=== PATIENT | male | born 1965 | race Caucasian/White ===

== ENCOUNTER → 2020-07-31 16:56 | Outpatient (CLI) | payer BC, SELFPAY ==
--- NOTE | ~2020-07-31 | XR_ITS ---
XR lumbar spine min 4V DATE: 07/31/2020 17:13 INDICATION: Low back pain TECHNIQUE: AP, lateral, coned lateral lumbosacral and bilateral oblique views COMPARISON: 06/02/2007 MRI lumbar spine 05/15/2007 lumbar spine FINDINGS: Osteopenia. There is minimal anterolisthesis at L3-4. The lumbar vertebra otherwise are normally aligned. There is moderately prominent loss of interspace at L2-3. There is mild loss of height at L5-S1. No fracture or bone destruction; the pedicles are intact. No spondylolysis. The sacroiliac joints appear normal. IMPRESSION: Diffuse osteopenia Moderate loss of interspace height at L2-3 and mild loss of interspace at L5-S1 Minimal anterolisthesis at L3-4 Reviewed, dictated and finalized at location B.
== END ==
PROVIDERS: PCP Family Medicine; Visit Provider Family Medicine
DX: M85.88 Other specified disorders of bone density and structure, other site (principal)
CPT/HCPCS: 72110

== ENCOUNTER 2020-09-12 15:09 | Outpatient (CLI) | payer BC, SELFPAY ==
--- NOTE | ~2020-09-12 | DEXA_ITS ---
Bone Density Report Name: Yasmani Medina Age: 55 Sex: Male Ethnicity: White Date of : 1965 Indication: history of glucocorticoids; prior fracture; Referring Provider: JENNIFER HORN Study: Bone densitometry was performed. Exam Date: September 12, 2020 Accession number: [id number] Bone Density: Region BMD T-score Z-score Classification AP Spine (L1-L4) 0.987 -0.9 -0.4 Normal Femoral Neck (Left) 0.767 -1.2 -0.3 Osteopenia Total Hip (Left) 0.961 -0.5 -0.1 Normal Total Hip Bilateral Avg 0.979 -0.4 0.1 Normal Femoral Neck (Right) 0.867 -0.5 0.4 Normal Total Hip (Right) 0.996 -0.2 0.2 Normal World Health Organization criteria for BMD impression classify patients as: Normal (T-score at or above -1.0), Osteopenia (T-score between -1.0 and -2.5), or Osteoporosis (T-score at or below -2.5). 10-year Fracture Risk: FRAX not reported because: Prior hip or vertebral fracture Clinical Information Provided by Patient: Have had a previous hip or vertebral fracture Has had a low trauma fracture Has taken Glucocorticoids Patient maximum height was 70 Drinks caffeinated beverages Impression: The patient has low bone mass, based on the Left Femoral Neck T-score. The patient has risk factors, including: previous fracture, history of glucocorticoid therapy. Discussion: INCREASED RISK OF FRACTURE DUE TO HISTORY OF LOW TRAUMA FRACTURE. The patient's previous fracture puts the patient at high risk of a future fracture. In untreated patients, the risk of osteoporotic fracture increases approximately two-fold for each 1.0 SD decrease in T-score. Low bone density is not the only risk factor for fracture; also consider factors such as patient's age, frailty or poor health, risk of falling, risk of injury, previous osteoporotic fracture, family history of osteoporosis, cigarette smoking, low body weight, etc. Not everyone with a low trauma fracture has osteoporosis; osteomalacia and other metabolic bone disorders should also be considered. Patients who have osteoporosis should be evaluated for specific diseases and conditions (secondary causes) that may cause or contribute to bone loss and fracture risk. National Osteoporosis Foundation (NOF) recommends pharmacologic intervention for patients with a prior low trauma hip or vertebral fracture regardless of BMD T-score. The patient should follow a healthful lifestyle (good nutrition with adequate calcium and vitamin D, and appropriate weight-bearing exercise). Follow-Up: Consider a repeat BMD and Vertebral Fracture Assessment (VFA) exam in 2 years or sooner if medically necessary, to reassess this patient's status. Reported by: DO on 09/12/2020 3:42:00 PM. Reviewed, dictated and finalized at location ALeydi AGRAWAL
== END 2020-09-12 15:10 | disposition home or self-care (01) ==
LOC: ANHIMG 15:12
PROVIDERS: PCP Family Medicine; Visit Provider Family Medicine
DX: M85.852 Other specified disorders of bone density and structure, left thigh (principal)
CPT/HCPCS: 77080

== ENCOUNTER 2021-01-04 13:46 | Emergency (ER) | payer BC, SELFPAY ==
--- NOTE | ~2021-01-04 | XR_ITS ---
EXAMINATION: XR ankle RT min 3V DATE: 01/04/2021 14:20 INDICATION: Right ankle pain post fall TECHNIQUE: Anteroposterior, oblique, mortise, and lateral views of the right ankle were obtained. COMPARISON: None. FINDINGS: Nondisplaced transverse fracture across the tip of the lateral malleolus. No other fractures identifi ed. Specifically the medial and posterior malleoli as well as the talar dome remain intact. Alignment remains essentially anatomic with congruent ankle mortise. Small heterotopic ossicle near the tip of the medial malleolus likely sequela of chronic medial ankle sprain. Soft tissue swelling about the l ateral malleolus. Tiny heterotopic ossicle versus loose osteochondral body at the anterior margin of the tibial plafond. IMPRESSION: 1. Nondisplaced transverse fracture across the tip of the lateral malleolus. Reviewed, dictated and finalized at location A.
--- NOTE | ~2021-01-04 | CT_ITS ---
EXAMINATION: CT thoracic lumbar wo con DATE: 01/04/2021 14:37 INDICATION: 10 to 12 ft. fall. Neck and back pain. TECHNIQUE: Computed tomography (CT) of the thoracic and lumbar spine was performed without intravenou s contrast. Automated exposure control and iterative reconstruction technique were employed. Exam dos e: 2206.11 mGy-cm total exam DLP. COMPARISON: None FINDINGS: There is mild degenerative spurring of the thoracic and lumbar spine. Normal alignment of the thoracic and lumbar vertebrae. The lumbar and lumbosacral interspaces are wel l preserved. No spondylolysis or spondylolisthesis. No fracture or dislocation or bone destruction of the thoracic or lumbar spine is evident.. Radiopaque seeds are noted in the prostate gland. IMPRESSION: Mild degenerative spurring of the thoracic and lumbar spine. No fracture, dislocation, s pondylolisthesis or bone destruction Reviewed, dictated and finalized at Location A. Reviewed, dictated and finalized at location A. IMPRESSION: Mild degenerative spurring of the thoracic and lumbar spine. No fr acture, dislocation, spondylolisthesis or bone destruction
--- NOTE | ~2021-01-04 | CT_ITS ---
EXAMINATION: CT cervical spine wo con DATE: 01/04/2021 14:36 INDICATION: 10 to 12 ft. fall. Neck pain, back pain. TECHNIQUE: Computed tomography (CT) of the cervical spine was performed without intravenous contrast. Automated exposure control and iterative reconstruction technique were employed. Exam dose: 451.92 mGy-cm total exam DLP. COMPARISON: None FINDINGS: There is prominent degenerative disc disease at C5-6, moderate degenerative disc disease at C6-7. There is degenerative change at the apophyseal joints. There is prominent uncovertebral joint spurring at C5-6. C1 and C2 are normally aligned and the odontoid process is intact. No fracture or dislocation or lock ed facet or prevertebral soft tissue swelling is detected. IMPRESSION: Cervical spondylosis; no evidence of cervical spine fracture or dislocation Reviewed, dictated and finalized at Location A. Reviewed, dictated and finalized at location A. IMPRESSION: Cervical spondylosis; no evidence of cervical spine fracture or di slocation
[2021-01-04 13:48] VITALS: BP 156/80; PULSE 82; RESP 18; TEMP 35.8; O2SAT 99
--- NOTE | 2021-01-04 14:06 | ED.FALL ---
HPI - Fall General Chief Complaint: Fall Stated Complaint: fall from ladder 10-12 ft height Time Seen by Provider: 01/04/21 13:57 Source: patient Mode of arrival: ambulatory Limitations: no limitations History of Present Illness HPI Narrative: Patient is a 55-year-old male complaining of right ankle, mid and lower back pain after he fell off a 10 foot ladder yesterday. Patient states his pain is currently mild, dull, nonradiating. Patient denies any head chest abdomen or any other extremity pain/injury. Patient states that she was able to get up and ambulate after the fall. Related Data Home Medications Medication Instructions Recorded Confirmed tadalafil 5 mg tablet 5 mg PO .every other day tablet 10/05/19 Allergies Allergy/AdvReac Type Severity Reaction Status Date / Time No Known Allergies Allergy Verified 01/04/21 13:56 Review of Systems Review of Systems: All systems reviewed & are unremarkable except as noted in HPI and below Constitutional: Constitutional: Denies body ache(s), Denies chills, Denies excessive sweating, Denies fatigue, Denies fever(s), Denies headache(s), Denies lethargy, Denies malaise, Denies weakness and Denies weight loss Eyes: Eyes: Denies blurry vision, Denies change in vision and Denies loss of vision ENT: Denies dizziness, Denies ear discharge, Denies headache(s), Denies lip swelling, Denies epistaxis, Denies nasal congestion, Denies neck pain, Denies throat swelling and Denies tongue swelling Cardiovascular: Cardiovascular: Denies chest pain, Denies chest pain at rest, Denies chest pain with activity, Denies diaphoresis, Denies rapid heart rate, Denies edema, Denies irregular heart rhythm, Denies lightheadedness, Denies palpitations, Denies dyspnea and Denies dyspnea on exertion Respiratory: Respiratory: Denies chest congestion, Denies cough, Denies hemoptysis, Denies dyspnea and Denies dyspnea on exertion Gastrointestinal: Gastrointestinal: Denies abdominal pain, Denies melena, Denies hematochezia, Denies diarrhea, Denies nausea, Denies vomiting and Denies hematemesis Musculoskeletal: Musculoskeletal: Denies abnormal gait, Denies deformity, Denies joint swelling, Denies limited range of motion, Denies neck pain and Denies numbness Neurologic: Denies Abnormal speech present, Denies abnormal gait, Denies confusion, Denies dizziness, Denies headache(s), Denies focal weakness, Denies loss of vision, Denies numbness, Denies Other visual disturbances, Denies Sensory deficit (Neuro) and Denies weakness Psychiatric: Psychiatric: Denies confusion, Denies depression, Denies auditory hallucinations, Denies homicidal ideation and Denies suicidal ideation Endocrine: Endocrine: Denies cold intolerance, Denies excessive sweating, Denies fatigue, Denies heat intolerance and Denies palpitations Hematologic/Lymphatic: Hematologic/Lymphatic: Denies easy bleeding and Denies easy bruising Allergic/Immunologic: Allergic/Immunologic: Denies lip swelling, Denies throat swelling and Denies tongue swelling PMFSH Family History Family History Father Family history of heart disease in male family member before age 55 Family history of bipolar disorder, Onset Age: 50 Family history of alcoholism, Onset Age: 50 Cerebrovascular accident, Onset Age: 50 Patient's father is , Onset Age: 50 Social History Social History Smoking status: Never smoker Second hand tobacco smoke exposure: No Alcohol intake: current Exam Const: General: cooperative, healthy appearing, comfortable, no acute distress, well developed, alert and awake; No confusion Orientation/consciousness: oriented to person, oriented to place, oriented to time, patient oriented x3 and No confusion Limitations: no limitations HENMT: Head: normal to inspection, normocephalic and atraumatic Ears: hearing grossl
[2021-01-04 16:00] VITALS: BP 155/70; PULSE 80; RESP 17; O2SAT 100
[2021-01-04] MEDS: TETANUS,DIPHTHERIA,AC PERTUSSIS ADULT (0.5 ML) BOOSTRIX IM (17:34)
== END 2021-01-04 17:36 | disposition home or self-care (01) ==
PROVIDERS: Emergency Provider Emergency Medicine; PCP Family Medicine
DX: S82.64XA Nondisplaced fracture of lateral malleolus of right fibula, initial encounter for closed fracture (principal); S16.1XXA Strain of muscle, fascia and tendon at neck level, initial encounter; S29.019A Strain of muscle and tendon of unspecified wall of thorax, initial encounter; S39.012A Strain of muscle, fascia and tendon of lower back, initial encounter; Z23 Encounter for immunization; W11.XXXA Fall on and from ladder, initial encounter
CPT/HCPCS: 29515; 72125; 72128; 72131; 73610; 90471; 90715; 99284

== ENCOUNTER → 2022-04-23 14:26 | Outpatient (CLI) | payer BC, SELFPAY ==
--- NOTE | ~2022-04-23 | XR_ITS ---
EXAMINATION: XR abdomen obstructive series DATE: 04/23/2022 15:11 INDICATION: Right lower abdominal pain TECHNIQUE: Upright and supine views of the abdomen were obtained. COMPARISON: None. FINDINGS: There is no free intraperitoneal gas or evidence of bowel obstruction. The visualized lung bases are clear. Surgical clips project in the area of the prostate. There is mild osteoarthritis of the hips. IMPRESSION: 1. Nonobstructive bowel gas pattern. Reviewed, dictated and finalized at location A. [employer]
== END ==
PROVIDERS: PCP Family Medicine; Visit Provider Family Medicine
DX: R10.9 Unspecified abdominal pain (principal)
CPT/HCPCS: 74019

== ENCOUNTER 2022-10-28 10:02 | Emergency (ER) | payer OTHER, SELFPAY ==
[2022-10-28 10:11] VITALS: BP 140/67; PULSE 76; RESP 18; TEMP 36.8; O2SAT 98
--- NOTE | 2022-10-28 10:25 | ED.ABDPAIN ---
HPI - Abdominal Pain General Chief Complaint: Abdominal Pain Stated Complaint: Abdominal Pain Time Seen by Provider: 10/28/22 10:16 Source: patient and RN notes reviewed Mode of arrival: ambulatory Limitations: no limitations History of Present Illness HPI narrative: Patient presents today complaining of pain to the umbilicus. Over the past year he states his umbilicus has gone from an innie to an outie , but noted bulging to the area this morning in the shower. He lifts weights everyday for the past 20 years and works out for up to 5 hours per day. Also reports some mild nausea since last night. Rates his pain 1/10 at rest, but increases to 5/10 with palpation. Related Data Allergies Allergy/AdvReac Type Severity Reaction Status Date / Time No Known Allergies Allergy Verified 10/28/22 10:16 Review of Systems Review of Systems: CONSTITUTIONAL: Denies body aches, fever, chills, or sweats. EYES: Denies visual changes, redness, or discharge. ENT: Denies rhinorrhea, congestion, sore throat, or otalgia. CARDIOVASCULAR: Denies chest pain, palpitations, or edema. RESPIRATORY: Denies cough or dyspnea. GASTROINTESTINAL: Denies vomiting, or diarrhea.+ abdominal pain, nausea GENITOURINARY: Denies dysuria or hematuria. SKIN: Denies rash, itching, or wounds. MUSCULOSKELETAL: Denies back pain, joint pain, or myalgia. NEUROLOGIC: Denies headache, numbness, tingling, or weakness. PSYCH: Denies depression or anxiety. [facility] Past Medical History Medical History Anemia Contracture of left Achilles tendon GERD (gastroesophageal reflux disease) History of urinary frequency History of weight gain Lateral knee pain Left shoulder pain Metatarsalgia of left foot Pes cavus of right foot Rotator cuff tendonitis Surgical History Surgical History History of prostate surgery Urolift surgery, 2019, Dr. Brewster Family History Family History Father Family history of heart disease in male family member before age 55 Family history of bipolar disorder, Onset Age: 50 Family history of alcoholism, Onset Age: 50 Cerebrovascular accident, Onset Age: 50 Patient's father is , Onset Age: 50 Other Hypertension Social History Social History Smoking status: Never smoker Second hand tobacco smoke exposure: No Alcohol intake: current Alcohol use details: 4-6 drinks per week Substance use: never Lack of Transportation: No Lack of Food: Never True Current Housing: I Have Housing Concerned About Future Housing: No Difficulty Paying Gas/Electric Bills: No Difficulty Paying for Meds: No Currently Unemployed: No Education: Master's Degree or Higher Difficulty w/ Childcare or Family Care: No Living arrangements: with family Occupation/Education: occupation 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 Please see nursing chart for further information. There is no relevant family history pertinent to the presenting complaint Exam Narrative: GENERAL: Well-appearing, well-nourished, and in no acute distress. HEAD: Normocephalic, atraumatic. EYES: EOMI. No redness or drainage. Conjunctivae normal. ENT: Mucous membranes pink and moist. NECK: Normal AROM. CHEST: No respiratory distress. Clear to auscultation. HEART: Regular rate and rhythm. No murmur appreciated. Normal peripheral pulses. ABDOMEN:nondistended, normal active bowel sounds. MUSCULOSKEL
--- NOTE | 2022-10-28 10:28 | PC.NURSE ---
PER SENIOR TRIAL ATTORNEY, PT ABD IS TENDER WHEN SHE ATTEMPTED TO REDUCE HERNIA.
--- NOTE | 2022-10-28 10:34 | PC.NURSE ---
PER HOOP COILER, SHE WAS UNABLE TO REDUCE HERNIA, PT WENT FROM 1/10 TO 5/10 ON PAIN SCALE WITH ATTEMPT. PT TO BE TRANSFERRED TO [facility].
== END 2022-10-28 10:30 | disposition short-term general hospital (02) ==
PROVIDERS: Emergency Provider Nurse Practitioner; PCP Family Medicine
DX: K42.0 Umbilical hernia with obstruction, without gangrene (principal); K21.9 Gastro-esophageal reflux disease without esophagitis
CPT/HCPCS: 99212; G0463

== ENCOUNTER 2022-10-28 10:55 | Emergency (ER) | payer OTHER, SELFPAY ==
[2022-10-28 11:10] VITALS: BP 124/78; PULSE 66; RESP 18; TEMP 36.5; O2SAT 98
[2022-10-28 12:06] LABS: Basophils Percent Auto 0.7 % (0.2-1.2); Eosinophils Absolute Auto 0.1 K/mm3 (0-0.3); Eosinophils Percent Auto 2.6 % (0-4.4); Hematocrit 41.2 % (42.0-52.0); Hemoglobin 13.4 g/dL (14.0-18.0); Immature Granulocyte Absolute 0.01 K/mm3 (0.00-0.031); Immature Granulocyte Percent A 0.2 % (0-0.5); Lymphocytes Absolute Auto 1.56 K/mm3 (0.9-3.2); Lymphocytes Percent Auto 29.1 % (18.3-44.2); Mean Corpuscular HGB Conc 32.5 g/dl (32-36); Mean Corpuscular Hemoglobin 29.2 pg (26-34); Mean Corpuscular Volume 89.8 fl (80-100); Mean Platelet Volume 9.2 fl (7.4-10.4); Monocytes Absolute Auto 0.5 K/mm3 (0.1-0.6); Monocytes Percent Auto 8.8 % (2.6-8.5); Neutrophils Absolute Auto 3.2 K/mm3 (1.3-6.7); Neutrophils Percent Auto 58.6 % (45.5-73.1); Platelet Count Result 329 k/mm3 (150-375); Red Blood Count 4.59 M/mm3 (4.6-6.20); Red Cell Distribution Width 12.6 % (11.5-14.5); White Blood Count 5.4 K/mm3 (4.5-10.0)
[2022-10-28 12:16] LABS: Alanine Aminotransferase 25 U/L (6-50); Albumin Level 4.6 g/dL (3.5-5.1); Alkaline Phosphatase 82 U/L (38-126); Anion Gap 8 mmol/L (8-16); Aspartate Amino Transferase 27 U/L (17-59); Bilirubin,Total 0.4 mg/dL (0.2-1.3); Blood Urea Nitrogen 13 mg/dL (9-20); Calcium 9.3 mg/dL (8.4-10.2); Carbon Dioxide 28 mmol/L (22-30); Chloride 103 mmol/L (98-107); Estimated CRCL calculation 88 ml/min; Estimated Glomerular Filt Rate > 60; Glucose 101 mg/dL (65-110); Lipase 53 U/L (23-300); Potassium 4.2 mmol/L (3.4-5.0); Sodium 139 mmol/L (137-145)
[2022-10-28 13:14] LABS: Appearance Urine Clear (Clear); Bilirubin Urine Negative (Negative); Blood Urine Negative (Negative); Color Urine Yellow (Yellow); Glucose Urine UA Negative (Negative); Ketones Urine Negative (Negative); Leukocyte Esterase Ur Negative LEU/UL (Negative); Nitrate Urine Negative (Negative); Protein Urine Negative (Negative); Specific Grav Ur 1.008 (1.001-1.035); Urobilinogen Urine 0.2 mg/dL (<2.0); pH Urine 7.5 (5.0-9.0)
[2022-10-28 13:23] VITALS: BP 140/100; PULSE 69; RESP 18; O2SAT 100
[2022-10-28 13:24] LABS: Add Urine Microscopic? NO
--- NOTE | 2022-10-28 14:00 | ED.GENADULT ---
HPI - General Adult General Chief complaint: Abdominal Pain Stated complaint: lump around belly button Time Seen by Provider: 10/28/22 13:13 History of Present Illness HPI narrative: Patient is a 57-year-old male who presents ER with pain and swelling around his umbilicus. Reports he has been noticing it intermittently over the last few weeks. Causes pain. Reports this morning the mass was the size of a orange but is since decreased in size. It is tender to touch. Does not remember any injury to the abdomen. Unsure when the last time was she passed gas. No vomiting or belching or distention. Related Data Allergies Allergy/AdvReac Type Severity Reaction Status Date / Time No Known Allergies Allergy Verified 10/28/22 10:16 Review of Systems Review of Systems: All systems reviewed & are unremarkable except as noted in HPI and below Constitutional: Constitutional: Denies chills and Denies fever(s) Gastrointestinal: Gastrointestinal: Reports abdominal pain, Denies bloating, Denies diarrhea, Denies nausea and Denies vomiting Genitourinary: Genitourinary: Denies dysuria and Denies urinary frequency [facility] Past Medical History Medical History Anemia Contracture of left Achilles tendon GERD (gastroesophageal reflux disease) History of urinary frequency History of weight gain Lateral knee pain Left shoulder pain Metatarsalgia of left foot Pes cavus of right foot Rotator cuff tendonitis Surgical History Surgical History History of prostate surgery Urolift surgery, 2019, Dr. Brewster Family History Family History Father Family history of heart disease in male family member before age 55 Family history of bipolar disorder, Onset Age: 50 Family history of alcoholism, Onset Age: 50 Cerebrovascular accident, Onset Age: 50 Patient's father is , Onset Age: 50 Other Hypertension Social History Social History Smoking status: Never smoker Second hand tobacco smoke exposure: No Alcohol intake: current Alcohol use details: 4-6 drinks per week Substance use: never Lack of Transportation: No Lack of Food: Never True Current Housing: I Have Housing Concerned About Future Housing: No Difficulty Paying Gas/Electric Bills: No Difficulty Paying for Meds: No Currently Unemployed: No Education: Master's Degree or Higher Difficulty w/ Childcare or Family Care: No Living arrangements: with family Occupation/Education: occupation 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 HEAD: Normocephalic, atraumatic. CHEST: Clear to auscultation. No respiratory distress. HEART: Regular rate and rhythm. Normal peripheral pulses. ABDOMEN: Soft, nontender, nondistended, normal active bowel sounds. Umbilical hernia with protruding bowel that is tender to touch. Bowel is able to be reduced with mild to moderate pressure and a defect can be felt in the abdominal wall. EXTREMITIES: Normal range of motion. No edema. SKIN: Warm, dry, no rash. NEURO: Alert and oriented x3. PSYCH: Normal mood and affect. Course Course Emergency Course: Patient resting comfortably. Educated patient on umbilical hernia and incarceration of bowel. Patient had his bowel reduced back through his hernia and pain is improved. His symptoms do not sound as though he is obstructed but that he had just been very symptomatic. We will give referral to general surgery. Vital Signs Vital signs: Vital Signs Temperature 97.7 F 06/2
[2022-10-28 14:05] VITALS: BP 111/81; PULSE 66; RESP 18; O2SAT 97
== END 2022-10-28 14:15 | disposition home or self-care (01) ==
PROVIDERS: Emergency Provider Emergency Medicine; PCP Family Medicine
DX: K42.9 Umbilical hernia without obstruction or gangrene (principal); D64.9 Anemia, unspecified; K21.9 Gastro-esophageal reflux disease without esophagitis
CPT/HCPCS: 36415; 80053; 81003; 83690; 85025; 99283

== ENCOUNTER 2022-11-29 01:36 | Day surgery (SDC) | payer OTHER, SELFPAY ==
[2022-11-17 13:23] VITALS: BMI 34.7
--- NOTE | 2022-11-17 13:30 | PC.NURSE ---
Report to the Outpatient Waiting Room, entrance under the green pavilion located off [facility], at time 1000_ on date _11/29/22_. Planned Procedure Time: _1200_. Time changes happen often and if your time is changed the preop area will call you the afternoon before. - You and your visitor will be asked to self-screen and do not enter if you have any COVID symptoms. - A mask is optional within the hospital at this time. Patients may have clear liquids (water, carbonated beverages, clear teas, apple juice) until 3 hours prior to surgery with a maximum of 20 ounces. - No food from midnight until time of surgery - Infants may have breast milk until 4 hours before surgery, formula 6 hours prior to surgery. - Children will be allowed to drink immediately following surgery. If applicable, please bring a bottle or sippy cup to assist with drinking. Juice, water, soda, and popsicles are readily available. For infants on formula, please bring formula the day of surgery. Pacifiers are allowed. Take the following medications with a SIP of water the morning of surgery: NONE, INHALERS IF NEEDED DO NOT STOP ANY OF YOUR OTHER PRESCRIPTION MEDICATIONS PRIOR TO SURGERY ?EXCEPT THE FOLLOWING Medications to discontinue per physician NONE___ Date to take last dose Please no make-up, nail citizen of [place], hairspray, perfume, deodorant, or body powder the day of surgery. No jewelry (including any body piercings) or valuables the day of surgery, leave them at home. Please take a shower or bath the night before, or the morning of, surgery with HIBICLENS antibacterial soap. Wear comfortable, loose fitting clothing. Children are encouraged to wear pajamas. - Jewelry must be removed prior to entering the operating room. Rings and piercings that are not removed may be cut off. - The hospital will not accept responsibility for valuables. - Please leave all valuables, including medications, at home the day of surgery. If you are going home after surgery, a licensed armor reconnaissance vehicle driver must drive you home. - NO public transportation without another adult if you receive anesthesia. - We recommend that an adult stay with you for 24 hours following discharge. - We also recommend that you do not drive, make important decision, drink alcoholic beverages, or take any drugs that were not prescribed by your health care provider for at least 24 hours after your discharge time. For Pediatric surgeries, we recommend two adults accompany the child home. Follow any additional instructions given to you from your surgeon. If you or anyone in your household have experienced Covid symptoms in the past week, please notify your surgeon or the nurse liaison at the phone number below for possible testing. Telephone instructions given to ___PATIENT_and asked if any additional questions and then verbalized understanding. Patient advised to call surgeon office or pre surgery nurse liaison [phone] if any additional questions.
--- NOTE | 2022-11-26 18:46 | WPDANESEPP ---
Anes - Eval Pre Procedure Procedure: Operation Date: 11/29/22 12:00 Proposed Procedures p Open Umbilical Hernia Repair - Luis Person MD Date/Time: 11/26/22 18:46 Pre Op Diagnosis: reducible umbilical hernia Patient Data Age: 57 Gender: M Height: 1.78 m Weight: 110 kg Allergies Allergy/AdvReac Type Severity Reaction Status Date / Time No Known Allergies Allergy Verified 11/17/22 13:21 Home Medications Medication Instructions Recorded Confirmed Type sildenafil 100 mg tablet (Viagra) 100 mg PO DAILY PRN sexual 10/16/21 11/17/22 Rx activity #10 tabs famotidine 20 mg tablet (Pepcid) 40 mg PO DAILY #90 tabs 01/20/22 11/17/22 Rx azelastine 205.5 mcg (0.15 %) 1 spray intranasal BID #30 mL 08/05/22 11/17/22 Rx nasal spray trazodone 100 mg tablet 100 mg PO QHS PRN insomnia #90 tabs 09/13/22 11/17/22 Rx albuterol sulfate 90 mcg/actuation See Rx Instructions .Route 10/22/22 11/17/22 Rx aerosol inhaler .COMPLEX #18 grams fluticasone 100 mcg-salmeterol 50 1 inh inhalation Q12H PRN 11/17/22 11/17/22 History mcg/dose blistr powdr for Shortness Of Breath Or Wheezing inhalation (Wixela Inhub) Patient hx anesthesia problems: none Family hx anesthesia problems: none Results Review: All pre-operative results and documents have been reviewed as part of the pre-operative evaluation. [facility] Past Medical History Medical History (Updated 11/26/22 @ 18:47 by Kylie Lemos CRNA) Anemia Asthma Contracture of left Achilles tendon GERD (gastroesophageal reflux disease) History of urinary frequency History of weight gain Hyperlipidemia IBS (irritable bowel syndrome) Lateral knee pain Left sciatic nerve pain Left shoulder pain Metatarsalgia of left foot Obesity (BMI 30-39.9) Pes cavus of right foot Rotator cuff tendonitis Surgical History Surgical History History of prostate surgery Urolift surgery, 2019, Dr. Brewster Family History Family History Father Family history of heart disease in male family member before age 55 Family history of bipolar disorder, Onset Age: 50 Family history of alcoholism, Onset Age: 50 Cerebrovascular accident, Onset Age: 50 Patient's father is , Onset Age: 50 Other Hypertension Social History Social History Smoking packs per day: 0.5 Smoking cigarettes per day: 10.0 Years smoked: 2 Smoking pack-years: 1.00 Smoking status: Former smoker Second hand tobacco smoke exposure: No Alcohol intake: current Alcohol use details: 2 PER MONTH Substance use: never Lack of Transportation: No Lack of Food: Never True Current Housing: I Have Housing Concerned About Future Housing: No Difficulty Paying Gas/Electric Bills: No Difficulty Paying for Meds: No Currently Unemployed: No Education: Master's Degree or Higher Difficulty w/ Childcare or Family Care: No Living arrangements: with family Occupation/Education: occupation 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
[2022-11-29] VITALS (7 sets, daily range): BP systolic 108–146; BP diastolic 63–86; PULSE 60–79; RESP 13–20; TEMP 36.7–36.8; O2SAT 98–99
[2022-11-29] MEDS: ACETAMINOPHEN 500 MG TABLET 1000 MG PO (10:30)
[2022-11-29] MEDS: LACTATED RINGERS 1,000 ML 30 ML IV CONT ×2 (10:30→13:25)
--- NOTE | 2022-11-29 10:37 | P.PNAN_ITS ---
Anes - Eval Final PreProcedure Day of Procedure 11/29/22 10:37 Patient weight: obese Heart: regular rate and rhythm Lungs: clear to auscultation Airway: Mallampati scale class II Neurological: alert and oriented Last oral intake: >/= 8 hours ASA classification: III Emergent: no Anesthetic plan: proceed Anesthesia type and monitoring: general ETT and standard monitoring Results Review: All pre-operative results and documents have been reviewed as part of the pre- operative evaluation. Informed Consent: The patient's anesthetic plan and its attendant risks and benefits were discussed with the patient/family/POA. Questions were solicited and answers provided to the satisfaction of the patient/family/POA.
[2022-11-29] MEDS: KETOROLAC 15 MG/ML VIAL (*BKC) IV PUSH ×2 (11:49→13:03)
--- NOTE | 2022-11-29 12:21 | WPDHPUPDATE1 ---
History and Physical Update Update Date/Time: 11/29/22 12:21 History and Physical has been reviewed, including an updated exam of the patient. There are NO changes in the patient's condition. Risks, benefits, and alternatives have been discussed and questions answered. Patient agrees to proceed with procedure.
[2022-11-29] MEDS: ceFAZolin 2 GM/D5W 50 ML 2 GM/50 ML BAG IVPB (12:29)
[2022-11-29] MEDS: LIDO 1%/EPINEPHRINE 1:100,000 50 ML VIAL 20 ML INFILTRATE (13:05)
--- NOTE | 2022-11-29 13:41 | W.PM.PROC2 ---
Procedure Note - Detailed Date of Procedure 11/29/22 Pre-op Diagnosis reducible umbilical hernia Post-op Diagnosis Same Procedure Performed Open reducible umbilical hernia repair without mesh. Surgeon Luis Person MD Anesthesia General Indications Patient is a 57-year-old white male presented with a small bulge at the umbilical region. Started have some soreness. The hernia is reducible. Presents now for elective repair without mesh. Findings Small reducible umbilical hernia with a fascial defect measuring approximately 1cm in diameter. Preperitoneal fat was noted within the hernia sac. No bowel involvement. Description of Procedure After informed consent was obtained patient brought to the operating room was placed supine position and general endotracheal anesthesia was administered. The abdomen was then prepped and draped usual sterile fashion. A time-out was then performed correctly identifying the patient as well as procedure to be performed. He was given Ancef for perioperative IV antibiotics. I then made a small curved incision just in the lower margin of the umbilical fold with a scalpel dissecting down through the dermis skin of the scalp. Then utilized electrocautery dissected down to the hernia sac and umbilical stalk. I then with blunt dissection with a Shanti clamp encircled the umbilical stalk and then disconnected the overlying dermis of the skin from the hernia sac. This is done electrocautery. Just open the hernia sac and there was some preperitoneal fat within it. I then resected the hernia sac and preperitoneal fat at the fascial level utilize electrocautery and sent to pathology for examination. I then placed my finger into the abdomen through the small defect and swept underneath the anterior abdominal wall there were no adhesions in this region. I then used 5 separate 0 Ethibond sutures with good 1cm bites on each side of the fascia to close the defect. The defect closed without any tension. There was then irrigated sterile saline solution hemostasis was excellent. I then proceeded to close the incision by tacking down the dermis of the umbilicus and recreating the inverted umbilicus a 3-0 Vicryl suture. It was sutured down to the fascial edges. Interrupted 2-0 Vicryl sutures then used to close the subcutaneous tissues which was then followed by a layer of interrupted 3-0 Vicryl sutures in the deep dermal layer. The skin edges were then approximated utilizing a running subcuticular 4 Monocryl suture. The incision was then cleaned the skin glue was applied. The patient tolerated the procedure well no complications. All sponge needles and instrument counts were correct at the end the procedure. Estimated blood loss procedure was 5cc. Patient was awakened extubated taken recovery stable satisfactory condition. Implants None Estimated Blood Loss -5.0 Drains No Packing No Pathology Yes (Hernia sac to pathology) Complications No immediate complications Condition Stable Disposition PACU [facility] Billing Surgery - Charge Forward: Surgery Billing
== END 2022-11-29 15:09 | disposition home or self-care (01) ==
PROVIDERS: PCP Family Medicine; Visit Provider Surgery
PROC: (CPT 49591; principal; 2022-11-29 12:00)
DX: K42.9 Umbilical hernia without obstruction or gangrene (principal); K21.9 Gastro-esophageal reflux disease without esophagitis; D64.9 Anemia, unspecified; E78.5 Hyperlipidemia, unspecified; I10 Essential (primary) hypertension; E66.9 Obesity, unspecified; Z68.34 Body mass index [BMI] 34.0-34.9, adult; J45.909 Unspecified asthma, uncomplicated; K58.9 Irritable bowel syndrome, unspecified; Z79.51 Long term (current) use of inhaled steroids; Z87.891 Personal history of nicotine dependence
CPT/HCPCS: 49591; 88302; A9270; J0690; J1100; J1170; J1885; J2250; J2405; J2704; J3010; J7120